=== PATIENT | male | born 2000 | race Caucasian/White ===

== ENCOUNTER 2022-08-16 01:26 | Emergency (ER) | payer BC ==
[2022-08-16] MEDS ORDERED: Fentanyl 100 MCG/2 ML VIAL ONE ×2 (01:36→02:18)
[2022-08-16 02:01] LABS: #Basophils 0.1 thou/uL (0.0-0.2); #Eosinphils 0.1 thou/uL (0.0-0.7); #Lymphocytes 1.3 thou/uL (1.20-3.40); #Monocytes 0.7 thou/uL (0.11-0.59); #Neutrophils 8.1 thou/uL (1.40-6.50); %Basophils 1.1 % (0.0-1.0); %Eosinophils 1.4 % (0.0-10.0); %Lymphocytes 12.8 % (21.0-51.0); %Monocytes 7.2 % (0.0-10.0); %Neutrophils 77.6 % (42.0-75.0); Hemoglobin 15.9 g/dL (14.0-18.0); Mean Corpuscular HGB CONC 33.7 g/dL (32.0-36.0); Mean Corpuscular Hemoglobin 30.3 pg (27.0-31.0); Mean Corpuscular Volume 90.1 fl (78.0-98.0); Mean Platelet Volume 7.3 fL (7.4-10.4); Platelet Count 287 10x3/uL (130-400); RBC Distribution Width 11.8 % (11.5-14.5); Red Blood Cell (RBC) Count 5.24 mill/uL (4.70-6.10); White Blood Cell (WBC) Count 10.4 10x3/uL (4.8-10.8)
[2022-08-16 02:13] LABS: ALT (SGPT) 30 U/L (8-55); AST (SGOT) 24 U/L (5-34); Albumin 4.8 g/dL (3.5-5.0); Alcohol 123 mg/dL (Less than 10); Alkaline Phosphatase 56 U/L (40-110); Anion Gap 13 mmol/L (10-20); BUN (Urea Nitrogen) 14 mg/dL (8.9-20.6); Bilirubin, Total 0.5 mg/dL (0.2-1.2); Calc. Creatinine Clearance 0 mL/min (70-130); Calcium 9.4 mg/dL (7.8-10.44); Carbon Dioxide 27 mmol/L (22-29); Chloride 104 mmol/L (98-107); Estimated GFR 103; Globulin 2.8 g/dL (2.4-3.5); Glucose 136 mg/dL (70-105); Lipase 30 U/L (8-78); Potassium 3.9 mmol/L (3.5-5.1); Protein, Total 7.6 g/dL (6.0-8.3); Sodium 140 mmol/L (136-145)
[2022-08-16] MEDS ORDERED: Ondansetron PF 4 MG/2 ML Vial ONE (02:15)
[2022-08-16] MEDS ORDERED: Iopamidol 370 76% 100 ML VIAL ONE (09:00)
== END 2022-08-16 04:04 | disposition short-term general hospital (02) ==
LOC: NAV ERS 01:26
DX: S22.42XA Multiple fractures of ribs, left side, initial encounter for closed fracture (principal); J93.9 Pneumothorax, unspecified; W22.8XXA Striking against or struck by other objects, initial encounter
CPT/HCPCS: 70450; 71260; 72125; 74177; 80053; 80307; 83690; 85025; 94760; 96374; 96375; 96376; J2405; J3010; Q9967